=== PATIENT | female | born 1960 | race Caucasian/White ===

== ENCOUNTER → 2016-06-25 | Outpatient (CLI) | payer OTHER ==
[~2016-06-25] MED LIST: AMPH20TA2 PO; AMPH30TA2 PO; CELE200C PO; HYDR2TAB13 PO; METR500T PO; MULT-658 PO; OXYC-302 PO; WARF2.5T73 PO; WARF5TAB PO
== END | disposition home or self-care (01) ==
LOC: CFH 08:31
PROVIDERS: ATTEND Orthopaedic Surgery
DX: M19.011 Primary osteoarthritis, right shoulder (principal); M25.411 Effusion, right shoulder; M75.121 Complete rotator cuff tear or rupture of right shoulder, not specified as traumatic; M62.511 Muscle wasting and atrophy, not elsewhere classified, right shoulder; M24.011 Loose body in right shoulder; S43.084A Other dislocation of right shoulder joint, initial encounter; X58.XXXA Exposure to other specified factors, initial encounter; Y93.89 Activity, other specified; Y92.89 Other specified places as the place of occurrence of the external cause; Y99.8 Other external cause status

== ENCOUNTER → 2016-07-23 | Outpatient (CLI) | payer OTHER ==
[~2016-07-23] MED LIST changes: +None at this time
== END | disposition home or self-care (01) ==
LOC: STAR 09:22
PROVIDERS: ATTEND Orthopaedic Surgery
DX: Z02.9 Encounter for administrative examinations, unspecified (principal)

== ENCOUNTER → 2016-07-28 | Outpatient (CLI) | payer OTHER ==
[2016-07-28 07:41] LABS: ASPARTATE AMINO TRANSFERASE 23 U/L (15-37); BLOOD UREA NITROGEN 17 mg/dL (7-18)
== END | disposition home or self-care (01) ==
LOC: LAB 07:14
DX: Z13.220 Encounter for screening for lipoid disorders (principal); R53.83 Other fatigue; R73.02 Impaired glucose tolerance (oral)
CPT/HCPCS: 36415; 80053; 80061; 82306; 83036; 84443; 85025

== ENCOUNTER 2016-08-01 05:38 | Day surgery (SDC) | payer OTHER ==
[~2016-08-01] VITALS: Ht 160 cm; Wt 62.0 kg
[2016-08-01] MEDS ORDERED: LACTATED RINGERS 1,000 ML IV SCH (06:07)
[2016-08-01] MEDS ORDERED: BUPIVACAINE/PF-EPI 0.25% 1:200K ONE (06:14)
[2016-08-01] MEDS ORDERED: EPINEPHRINE 1 MG/ML, 1ML ONE (06:14)
[2016-08-01] MEDS ORDERED: MIDAZOLAM 1 MG/ML, 2ML ONE (06:27)
[2016-08-01] MEDS ORDERED: FENTANYL PF 250 MCG/5ML ONE (06:27)
[2016-08-01 06:28] VITALS: BP 139/93
[2016-08-01] MEDS ORDERED: BUPIVACAINE/PF 0.5% ONE (06:30)
[2016-08-01] MEDS ORDERED: ROCURONIUM 10 MG/ML ONE (07:03)
[2016-08-01] MEDS ORDERED: GLYCOPYRROLATE 0.2MG/1ML ONE (07:03)
[2016-08-01] MEDS ORDERED: PHENYLEPHRINE 10 MG/ML ONE (07:03)
[2016-08-01] MEDS ORDERED: PROPOFOL 10 MG/ML, 20ML ONE (07:03)
[2016-08-01] MEDS ORDERED: NEOSTIGMINE 1 MG/ML, 10ML ONE (07:03)
[2016-08-01] MEDS ORDERED: ONDANSETRON 2MG/ML, 2ML ONE ×2 (07:03→11:09)
[2016-08-01] MEDS ORDERED: CEFAZOLIN 1,000 MG ONE (07:03)
[2016-08-01] MEDS ORDERED: EPHEDRINE 50 MG/ML, 1ML ONE (07:03)
[2016-08-01] MEDS ORDERED: VANCOMYCIN PMX 1GM/200ML 200 ML IV ONE (07:30)
[2016-08-01] MEDS ORDERED: MIDAZOLAM 1 MG/ML, 2ML IV PRN (08:00)
[2016-08-01] MEDS ORDERED: FENTANYL PF 100 MCG/2ML IV PRN (08:00)
[2016-08-01] MEDS ORDERED: ACETAMINOPHEN 325 MG TABLET PO PRN (08:00)
[2016-08-01] MEDS ORDERED: KETOROLAC 30 MG/1 ML IV PRN (08:00)
[2016-08-01] MEDS ORDERED: LABETALOL 5MG/ML, 20ML IV PRN (08:00)
[2016-08-01] MEDS ORDERED: PROMETHAZINE 25 MG/ML, 1ML IV PRN (08:00)
[2016-08-01] MEDS ORDERED: HYDROcodone/APAP 7.5-325MG/15ML UDC PO PRN (08:00)
[2016-08-01] MEDS ORDERED: OXYcodone 5 MG/5 ML ORAL.SOL UDC PO PRN (08:00)
[2016-08-01] MEDS ORDERED: MEPERIDINE/PF 25MG/0.5ML IVPush PRN (08:00)
[2016-08-01] MEDS ORDERED: HYDROmorphone 1 MG/ML, 1ML IV PRN (08:00)
[2016-08-01] MEDS ORDERED: hydrALAzine 20 MG/ML, 1ML IV PRN (08:00)
[2016-08-01] MEDS ORDERED: ONDANSETRON 2MG/ML, 2ML IVPush PRN (08:00)
[2016-08-01] MEDS ORDERED: EPHEDRINE 50 MG/ML, 1ML IVPush PRN (08:00)
[2016-08-01] MEDS ORDERED: OXYcodone 5 MG/5 ML ORAL.SOL UDC ONE (10:16)
[2016-08-01] MEDS ORDERED: ACETAMINOPHEN 650 MG/20.3 ML UDC ONE (10:17)
[2016-08-01] MEDS ORDERED: ACETAMINOPHEN 325 MG TABLET ONE (10:17)
== END 2016-08-01 13:10 ==
LOC: OUT 05:38
PROVIDERS: ATTEND Orthopaedic Surgery
DX: M75.111 Incomplete rotator cuff tear or rupture of right shoulder, not specified as traumatic (principal); S46.111A Strain of muscle, fascia and tendon of long head of biceps, right arm, initial encounter; M19.011 Primary osteoarthritis, right shoulder; M75.41 Impingement syndrome of right shoulder; Z72.89 Other problems related to lifestyle; X58.XXXA Exposure to other specified factors, initial encounter; Y93.9 Activity, unspecified; Y92.9 Unspecified place or not applicable; Y99.9 Unspecified external cause status
CPT/HCPCS: 29822; 29826; 29827; C1713; J0171; J0690; J2250; J2370; J2405; J2704; J2710; J3010; J3490; J7120

== ENCOUNTER → 2017-06-17 | Outpatient (CLI) | payer OTHER ==
[~2017-06-17] MED LIST changes: -HYDR2TAB13 PO; +HYDR2TAB29 PO
[2017-06-17 16:42] LABS: ALANINE AMINOTRANSFERASE 35 U/L (12-78); ALBUMIN 4.1 g/dL (3.4-5.0); ANION GAP 9 mmol/L (5-15); CHLORIDE 108 mmol/L (98-107); CREATININE 0.85 mg/dL (0.55-1.02)
[2017-06-17 16:51] LABS: ALKALINE PHOSPHATASE 93 U/L (45-117); BILIRUBIN,TOTAL 0.5 mg/dL (0.2-1.0)
[2017-06-17 16:52] LABS: HEMOGLOBIN A1C 5.4 % (4.2-6.3)
== END | disposition home or self-care (01) ==
LOC: LAB 16:02
PROVIDERS: ATTEND Family Medicine
DX: M15.9 Polyosteoarthritis, unspecified (principal); R73.09 Other abnormal glucose
CPT/HCPCS: 36415; 80053; 83036; 84443; 85651; 86038; 86140; 86200; 86430

== ENCOUNTER → 2018-01-14 | Outpatient (CLI) | payer OTHER | END | disposition home or self-care (01) | LOC: CFH 08:00 | PROVIDERS: ATTEND Family Medicine | DX: Z12.31 Encounter for screening mammogram for malignant neoplasm of breast (principal) | CPT/HCPCS: 77063; 77067 ==

== ENCOUNTER → 2018-02-09 | Outpatient (CLI) | payer OTHER | END | disposition home or self-care (01) | LOC: CFH 12:39 | PROVIDERS: ATTEND Family Medicine | DX: R92.2 Inconclusive mammogram (principal) | CPT/HCPCS: 77065 ==

== ENCOUNTER → 2018-02-13 | Outpatient (CLI) | payer OTHER ==
[~2018-02-13] MED LIST changes: +GADOBUTROL 7.5 MMOL/7.5 ML VIAL ONE
== END | disposition home or self-care (01) ==
LOC: CFH 14:38
PROVIDERS: ATTEND Family Medicine
DX: R92.8 Other abnormal and inconclusive findings on diagnostic imaging of breast (principal)
CPT/HCPCS: A9585; C8908

== ENCOUNTER → 2018-05-14 | Outpatient (CLI) | payer OTHER ==
[~2018-05-14] MED LIST changes: -GADOBUTROL 7.5 MMOL/7.5 ML VIAL ONE; +LIDOCAINE 1%, 20ML ONE; +LIDOCAINE 1%-EPI 1:100K, 20ML ONE; +SODIUM BICARBONATE 4.0%, 5ML ONE; +WARF2.5T32 PO; -WARF2.5T73 PO
== END | disposition home or self-care (01) ==
LOC: CFH 09:25
PROVIDERS: ATTEND Surgery
DX: N63.10 Unspecified lump in the right breast, unspecified quadrant (principal)
CPT/HCPCS: 19281; J3490

== ENCOUNTER 2018-05-25 09:04 | Day surgery (SDC) | payer OTHER ==
[~2018-05-25] VITALS: Ht 160 cm; Wt 64.8 kg
[~2018-05-25 09:04] MED LIST changes: +BUPIVACAINE/PF-EPI 0.5% 1:200K ONE; -LIDOCAINE 1%, 20ML ONE; -LIDOCAINE 1%-EPI 1:100K, 20ML ONE; -SODIUM BICARBONATE 4.0%, 5ML ONE
[2018-05-25] MEDS ORDERED: AMPH20TA2 PO (09:36)
[2018-05-25] MEDS ORDERED: DULO20CA45 PO (09:36)
[2018-05-25 09:40] VITALS: BP 131/78
[2018-05-25] MEDS ORDERED: LACTATED RINGERS 1,000 ML IV SCH (10:09)
[2018-05-25] MEDS ORDERED: FENTANYL PF 250 MCG/5ML ONE (10:15)
[2018-05-25] MEDS ORDERED: MIDAZOLAM 1 MG/ML, 2ML ONE (10:15)
[2018-05-25] MEDS ORDERED: VANCOMYCIN 500 MG ONE (10:22)
[2018-05-25] MEDS ORDERED: VANCOMYCIN 1,000 MG ONE (10:23)
[2018-05-25] MEDS ORDERED: PROPOFOL 10 MG/ML, 20ML ONE (10:25)
[2018-05-25] MEDS ORDERED: LIDOCAINE-MPF 2% ,5ML ONE (10:25)
[2018-05-25] MEDS ORDERED: WATER-INJECTION,STERILE 10 ML IV ONE (10:26)
[2018-05-25] MEDS ORDERED: CEFAZOLIN 1,000 MG ONE ×2 (10:26)
[2018-05-25] MEDS ORDERED: GABAPENTIN 300 MG CAPSULE PO ONE (10:30)
[2018-05-25] MEDS ORDERED: APREPITANT 40 MG CAPSULE PO ONE (10:30)
[2018-05-25] MEDS ORDERED: OxyconTIN ER 10 MG TAB.ER PO ONE (10:30)
[2018-05-25] MEDS ORDERED: ACETAMINOPHEN 500 MG TABLET PO ONE (10:30)
[2018-05-25] MEDS ORDERED: DEXAMETHASONE 4 MG/ML, 1ML ONE (10:41)
[2018-05-25] MEDS ORDERED: ONDANSETRON 2MG/ML, 2ML ONE ×2 (10:54)
[2018-05-25] MEDS ORDERED: DIPHENHYDRAMINE 50 MG/ML, 1ML ONE (11:18)
[2018-05-25] MEDS ORDERED: MEPERIDINE/PF 25MG/ML,1ML ONE (11:24)
[2018-05-25] MEDS ORDERED: PROMETHAZINE 25 MG/ML, 1ML IV PRN (11:30)
[2018-05-25] MEDS ORDERED: DIPHENHYDRAMINE 50 MG/ML, 1ML IVPush PRN (11:30)
[2018-05-25] MEDS ORDERED: hydrALAzine 20 MG/ML, 1ML IV PRN (11:30)
[2018-05-25] MEDS ORDERED: OXYcodone 5 MG/5 ML ORAL.SOL UDC PO PRN (11:30)
[2018-05-25] MEDS ORDERED: MEPERIDINE/PF 25MG/0.5ML IVPush PRN (11:30)
== END 2018-05-25 13:30 | disposition home or self-care (01) ==
LOC: OUT 09:04
PROVIDERS: ATTEND Surgery
DX: D24.1 Benign neoplasm of right breast (principal); Z87.39 Personal history of other diseases of the musculoskeletal system and connective tissue; Z85.3 Personal history of malignant neoplasm of breast; Z98.890 Other specified postprocedural states; Z72.89 Other problems related to lifestyle
CPT/HCPCS: 19125; 76098; 88305; J0690; J1100; J2175; J2250; J2405; J2704; J3010; J3370; J3490; J7120; J8501

== ENCOUNTER → 2019-08-20 | Outpatient (CLI) | payer OTHER ==
[~2019-08-20] MED LIST changes: -BUPIVACAINE/PF-EPI 0.5% 1:200K ONE; +DULO20CA45 PO
== END | disposition home or self-care (01) ==
LOC: CFH 08:20
PROVIDERS: ATTEND Nurse Practitioner Family
DX: Z12.31 Encounter for screening mammogram for malignant neoplasm of breast (principal)
CPT/HCPCS: 77063; 77067

== ENCOUNTER 2020-04-04 14:16 | Emergency (ER) | payer OTHER ==
[~2020-04-04] VITALS: Ht 160 cm; Wt 70.3 kg
[~2020-04-04 14:16] MED LIST changes: -WARF5TAB PO; +WARF5TAB2 PO
--- NOTE | 2020-04-04 14:55 | NUR ---
assumed care of pt. pt here for cough after +COVID test last week. pt in no resp distress. speaking full sentences without diffiuclty. no apaprent distress. pt reports that she had diarrhea 3 days ago but that it has resolved. +intermittent body aches. no fever no family at bedside. Dr. Villa at bedside for eval
[2020-04-04 15:38] VITALS: BP 135/89
== END 2020-04-04 15:42 | disposition home or self-care (01) ==
LOC: ED 15:10
DX: U07.1 COVID-19 (principal); J06.9 Acute upper respiratory infection, unspecified
CPT/HCPCS: 99283